=== PATIENT | male | born 1945 | race African-American/Black ===

== ENCOUNTER 2016-11-14 17:10 | Inpatient (IN) | payer OTHER ==
[~2016-11-14] VITALS: Ht 180.3 cm; Wt 89.9 kg
[~2016-11-14 17:10] MED LIST: ADVAIR 250/501 DISK IH; ALDACTAZIDE 251 EACH PO; COMBIVENT INH14.7 GM IH; COMBIVENT RESPIM4 GM IH; DELTASONE20 M1 PO; DILAUDID2 MG PO; GABAPENTIN300 MG PO; GABAPENTIN600 MG PO; GLIMEPIRIDE2 MG PO; K-DUR20 MEQ PO; KLOR-CON M2020 MEQ PO; METFORMIN HCL1000 M1 PO; METFORMIN HCL500 MG PO; NATURAL BALANCE15 M1 BOTH EYES; NEURONTIN600 MG PO; PEPCID20 MG PO; PERCOCET 5/31 TABLET PO; PRAVASTATIN SOD40 MG PO; PROAIR HFA8.5 GM IH; PROCARDIA XL90 MG PO; PROZAC20 MG PO; PROZAC40 MG PO; TRAMADOL HCL50 MG PO; ULTRAM50 MG PO; VENTOLIN HFA18 GM IH; VISINE A.C300 DROP/1 BOTH EYES; XARELTO20 MG PO; ZITHROMAX Z-PA250 MG PO
[2016-11-14 17:39] LABS: HEMATOCRIT 39.8 % (38.0-50.0); MCH 32.6 PG (29.0-34.0); MCHC 33.4 G/DL (30.0-36.0); MCV 97.5 FL (86-99); MEAN PLAT.VOLUME 9.5 uM^3 (9.0-12.4); PLATELET COUNT 352 K/uL (156-360); RBC DIS.WIDTH-CV 12.6 % (11.8-14.6); RBC DIS.WIDTH-SD 43.9 % (39-53); RED BLOOD COUNT 4.08 M/uL (4.00-5.50); WHITE BLOOD COUNT 10.9 K/uL (4.1-10.2)
[2016-11-14 17:47] LABS: CHLORIDE 103 mEq/L (99-109); POTASSIUM 3.9 mEq/L (3.7-5.4); SODIUM 141 mEq/L (136-147)
[2016-11-14 17:49] LABS: GLUCOSE 155 mg/dL (70-99)
[2016-11-14 17:51] LABS: ANION GAP 13 MEQ/L (2-14); TOTAL BILIRUBIN 0.7 mg/dL (0.0-1.0)
[2016-11-14 17:53] LABS: ALKALINE PHOSPHATASE 131 IU/L (3-129); GFR ESTIMATE (CALCULATED) > 59 mL/min/
[2016-11-14 17:54] LABS: UREA NITROGEN (BUN) 12 mg/dL (9-23)
[2016-11-14 17:56] LABS: LIPASE 100 U/L (1.0-51.0)
[2016-11-14 18:29] LABS: D-DIMER ELISA 3.12 mg/L FEU (< 0.57)
[2016-11-14 19:11] LABS: TROP-I INTERPRETATION NEGATIVE; TROPONIN-I 0.01 ng/mL (0.0-0.30)
[2016-11-14] MEDS ORDERED: NEURONTIN300 MG PO (20:17)
[2016-11-14 20:38] LABS: INTER. NORMALIZED RATIO 1.2; PROTHROMBIN TIME 11.8 (9.2-11.2); PTT 32.7 (25-32)
[2016-11-14 22:03] VITALS: BP 122/16
[2016-11-15 03:16] LABS: HEMATOCRIT 37.9 % (38.0-50.0); MCH 32.6 PG (29.0-34.0); MEAN PLAT.VOLUME 9.5 uM^3 (9.0-12.4); PLATELET COUNT 348 K/uL (156-360); RBC DIS.WIDTH-CV 12.7 % (11.8-14.6); RBC DIS.WIDTH-SD 44.3 % (39-53); RED BLOOD COUNT 3.83 M/uL (4.00-5.50); WHITE BLOOD COUNT 10.2 K/uL (4.1-10.2)
[2016-11-15 03:25] LABS: CHLORIDE 104 mEq/L (99-109); POTASSIUM 3.8 mEq/L (3.7-5.4); SODIUM 141 mEq/L (136-147)
[2016-11-15 03:28] LABS: GLUCOSE 101 mg/dL (70-99)
[2016-11-15 03:29] LABS: ANION GAP 12 MEQ/L (2-14)
[2016-11-15 03:30] LABS: TOTAL BILIRUBIN 0.7 mg/dL (0.0-1.0)
[2016-11-15 03:31] LABS: ALKALINE PHOSPHATASE 118 IU/L (3-129); GFR ESTIMATE (CALCULATED) > 59 mL/min/
[2016-11-15 03:32] LABS: UREA NITROGEN (BUN) 12 mg/dL (9-23)
[2016-11-15 03:52] VITALS: BP 112/73
[2016-11-15 07:28] VITALS: BP 101/69
[2016-11-15 10:43] LABS: INTER. NORMALIZED RATIO 1.1; PROTHROMBIN TIME 11.4 (9.2-11.2); PTT 39.1 (25-32)
[2016-11-15 11:03] VITALS: BP 128/79
[2016-11-15 14:59] VITALS: BP 119/73
[2016-11-15 19:17] VITALS: BP 110/74
[2016-11-16 00:02] VITALS: BP 110/60
[2016-11-16 03:43] VITALS: BP 116/78
[2016-11-16 07:28] LABS: INTER. NORMALIZED RATIO 1.1; PROTHROMBIN TIME 11.2 (9.2-11.2)
[2016-11-16 07:29] VITALS: BP 132/88
[2016-11-16 07:39] LABS: PTT 35.9 (25-32)
[2016-11-16 07:49] LABS: POINT-OF-CARE METER ID UU14188625
[2016-11-16 09:08] LABS: HEMATOCRIT 35.2 % (38.0-50.0); MCH 31.4 PG (29.0-34.0); MCHC 31.5 G/DL (30.0-36.0); MCV 99.4 FL (86-99); MEAN PLAT.VOLUME 10.9 uM^3 (9.0-12.4); PLATELET COUNT 316 K/uL (156-360); RBC DIS.WIDTH-CV 12.9 % (11.8-14.6); RBC DIS.WIDTH-SD 46.9 % (39-53); RED BLOOD COUNT 3.54 M/uL (4.00-5.50); WHITE BLOOD COUNT 8.2 K/uL (4.1-10.2)
[2016-11-16 09:28] LABS: ANION GAP 9 MEQ/L (2-14); CHLORIDE 104 MEQ/L (99-109); GFR ESTIMATE (CALCULATED) > 59 mL/min/; GLUCOSE 80 mg/dL (70-99); SAMPLE HEMOLYSIS CHECK 0; SAMPLE ICTERIC CHECK 0; SAMPLE LIPEMIA CHECK 0; SODIUM 138 MEQ/L (136-147); UREA NITROGEN (BUN) 19 mg/dL (9-23)
[2016-11-16 11:04] VITALS: BP 120/82
[2016-11-16 11:08] LABS: POINT-OF-CARE METER ID UU14188625
[2016-11-16 15:19] VITALS: BP 128/69
[2016-11-16 16:17] LABS: POINT-OF-CARE METER ID UU14174225
[2016-11-16 16:51] LABS: INTER. NORMALIZED RATIO 1.1; PROTHROMBIN TIME 11.5 (9.2-11.2); PTT 38.5 (25-32)
[2016-11-16 19:34] VITALS: BP 119/83
[2016-11-16 21:33] LABS: POINT-OF-CARE METER ID UU14188625
[2016-11-17] VITALS: BP 96/62
[2016-11-17 04:00] VITALS: BP 104/70
[2016-11-17 07:49] VITALS: BP 132/81
[2016-11-17 08:34] LABS: HEMATOCRIT 36.5 % (38.0-50.0); MCH 31.1 PG (29.0-34.0); MCHC 31.2 G/DL (30.0-36.0); MCV 99.5 FL (86-99); MEAN PLAT.VOLUME 10.1 uM^3 (9.0-12.4); PLATELET COUNT 315 K/uL (156-360); RBC DIS.WIDTH-CV 12.8 % (11.8-14.6); RBC DIS.WIDTH-SD 46.4 % (39-53); RED BLOOD COUNT 3.67 M/uL (4.00-5.50)
[2016-11-17 09:00] LABS: CREATINE KINASE 110 IU/L (1-294); UREA NITROGEN (BUN) 18 mg/dL (9-23)
[2016-11-17 09:15] LABS: INTER. NORMALIZED RATIO 1.2; PTT 49.3 (25-32)
[2016-11-17 17:00] VITALS: BP 104/74
[2016-11-17 19:40] VITALS: BP 110/72
[2016-11-17 21:58] LABS: LUPA PHOSPHOLIPID NEUTRALIZ Negative (Negative)
[2016-11-17 23:37] VITALS: BP 103/63
[2016-11-18 04:16] VITALS: BP 97/65
[2016-11-18 07:12] LABS: INTER. NORMALIZED RATIO 1.3; PROTHROMBIN TIME 13.5 (9.2-11.2)
[2016-11-18 07:39] VITALS: BP 112/80
[2016-11-18 08:55] LABS: HEMATOCRIT 34.6 % (38.0-50.0); MCH 32.6 PG (29.0-34.0); MCHC 32.1 G/DL (30.0-36.0); MCV 101.5 FL (86-99); MEAN PLAT.VOLUME 11.5 uM^3 (9.0-12.4); PLATELET COUNT 304 K/uL (156-360); RED BLOOD COUNT 3.41 M/uL (4.00-5.50); WHITE BLOOD COUNT 7.6 K/uL (4.1-10.2)
[2016-11-18 11:19] VITALS: BP 110/70
[2016-11-18 15:53] VITALS: BP 114/77
[2016-11-18 19:17] VITALS: BP 104/69
[2016-11-18 21:09] LABS: POINT-OF-CARE METER ID UU14188625
[2016-11-18 23:44] VITALS: BP 111/72
[2016-11-19 04:00] VITALS: BP 106/65
[2016-11-19 07:11] LABS: HEMATOCRIT 34.4 % (38.0-50.0); MCH 32.6 PG (29.0-34.0); MCHC 32.3 G/DL (30.0-36.0); MCV 100.9 FL (86-99); MEAN PLAT.VOLUME 10.3 uM^3 (9.0-12.4); PLATELET COUNT 272 K/uL (156-360); RBC DIS.WIDTH-CV 12.9 % (11.8-14.6); RBC DIS.WIDTH-SD 47.2 % (39-53); RED BLOOD COUNT 3.41 M/uL (4.00-5.50); WHITE BLOOD COUNT 6.6 K/uL (4.1-10.2)
[2016-11-19 07:27] LABS: INTER. NORMALIZED RATIO 1.6; PROTHROMBIN TIME 16.1 (9.2-11.2); PTT 66.5 (25-32)
[2016-11-19 07:27] LABS: POINT-OF-CARE METER ID UU14188625
[2016-11-19 07:43] VITALS: BP 105/69
[2016-11-19 08:02] LABS: ANION GAP 7 MEQ/L (2-14); CHLORIDE 105 MEQ/L (99-109); POTASSIUM 4.4 MEQ/L (3.7-5.4); SAMPLE HEMOLYSIS CHECK 0; SAMPLE ICTERIC CHECK 0; SAMPLE LIPEMIA CHECK 0; SODIUM 139 MEQ/L (136-147)
[2016-11-19 08:08] LABS: GFR ESTIMATE (CALCULATED) > 59 mL/min/; GLUCOSE 60 mg/dL (70-99)
[2016-11-19 08:09] LABS: UREA NITROGEN (BUN) 29 mg/dL (9-23)
[2016-11-19 11:09] LABS: POINT-OF-CARE METER ID UU14188625
[2016-11-19] MEDS ORDERED: COUMADIN1 MG PO (11:37)
[2016-11-19] MEDS ORDERED: LOVENOX80 MG/0.8 SC (11:37)
[2016-11-19] MEDS ORDERED: FAMOTIDINE20 MG PO (11:40)
[2016-11-19 15:03] VITALS: BP 91/63
[2016-11-19 18:32] LABS: DRVVT Mixing Study Interp Not Indicated (()); PROTEIN C FUNCTIONAL ACTIVITY+ >200 % (70-180); PTT-LA >200 sec (<=40); Protein S, Free 118 % normal (57-171); Thrombosis Consult Level Limited (()); dRVVT Screen 52 sec (<=45)
[2016-11-20] VITALS: BP 126/81
[2016-11-20 06:26] LABS: MCH 31.5 PG (29.0-34.0); MCHC 31.1 G/DL (30.0-36.0); MCV 101.4 FL (86-99); MEAN PLAT.VOLUME 10.3 uM^3 (9.0-12.4); PLATELET COUNT 285 K/uL (156-360); RBC DIS.WIDTH-CV 13.1 % (11.8-14.6); RBC DIS.WIDTH-SD 48.4 % (39-53); RED BLOOD COUNT 3.55 M/uL (4.00-5.50); WHITE BLOOD COUNT 6.2 K/uL (4.1-10.2)
[2016-11-20 06:49] LABS: ANION GAP 6 MEQ/L (2-14); CHLORIDE 105 MEQ/L (99-109); GFR ESTIMATE (CALCULATED) > 59 mL/min/; GLUCOSE 72 mg/dL (70-99); POTASSIUM 4.9 MEQ/L (3.7-5.4); SAMPLE HEMOLYSIS CHECK 0; SAMPLE ICTERIC CHECK 0; SAMPLE LIPEMIA CHECK 0; SODIUM 139 MEQ/L (136-147); UREA NITROGEN (BUN) 29 mg/dL (9-23)
[2016-11-20 07:33] VITALS: BP 114/77
[2016-11-20 09:16] LABS: ANTITHROMBIN III ACTIVITY+ 112 % activi (80-120)
[2016-11-20 11:25] LABS: INTER. NORMALIZED RATIO 1.9; PROTHROMBIN TIME 19.4 (9.2-11.2)
[2016-11-20] MEDS ORDERED: LOVENOX80 MG/0.8 SC (11:27)
[2016-11-20] MEDS ORDERED: OXYCODONE HCL15 MG PO (12:49)
== END 2016-11-20 15:53 | disposition home or self-care (01) | DRG 176 ==
LOC: EME 17:10 → EDOF 20:38 → 5SOUTH 20:38
PROVIDERS: Hospitalist; Internal Medicine; Physician Assistant; Student in an Organized Health Care Education/Training Program
DX: I26.99 Other pulmonary embolism without acute cor pulmonale (principal); K91.870 Postprocedural hematoma of a digestive system organ or structure following a digestive system procedure; Y83.8 Other surgical procedures as the cause of abnormal reaction of the patient, or of later complication, without mention of misadventure at the time of the procedure; J44.9 Chronic obstructive pulmonary disease, unspecified; I10 Essential (primary) hypertension; I27.2 Other secondary pulmonary hypertension; G89.29 Other chronic pain; E11.9 Type 2 diabetes mellitus without complications; E78.00 Pure hypercholesterolemia, unspecified; F17.200 Nicotine dependence, unspecified, uncomplicated; F32.9 Major depressive disorder, single episode, unspecified; N28.1 Cyst of kidney, acquired; H54.8 Legal blindness, as defined in USA; G56.03 Carpal tunnel syndrome, bilateral upper limbs; Z90.49 Acquired absence of other specified parts of digestive tract; Z79.891 Long term (current) use of opiate analgesic; Z79.84 Long term (current) use of oral hypoglycemic drugs; Z79.01 Long term (current) use of anticoagulants; Z71.6 Tobacco abuse counseling; Z85.118 Personal history of other malignant neoplasm of bronchus and lung
CPT/HCPCS: 71275; 74177; 76705; 78226; 80048; 80053; 81003; 81240 90; 82550; 82948; 83090 90; 83690; 84484; 84520; 85027; 85240 90; 85300 90; 85303 90; 85305 90; 85306 90; 85307 90; 85379; 85610; 85613 90; 85730; 85730 90; 86146 90; 86147 90; 93005; 93306; 94640; 94640 76; 99202; 99281; 99285; A9537; J1170; J1650; J1815; J1885; J2405; J3010; J7030; J7050

== ENCOUNTER 2016-12-19 17:25 | Emergency (ER) | payer OTHER ==
[~2016-12-19] VITALS: Ht 180.3 cm; Wt 89.4 kg
[~2016-12-19 17:25] MED LIST changes: +COUMADIN1 MG PO; +FAMOTIDINE20 MG PO; +LOVENOX80 MG/0.8 SC; +NEURONTIN300 MG PO; +OXYCODONE HCL15 MG PO
[2016-12-19 18:37] LABS: HEMATOCRIT 41.2 % (38.0-50.0); MCH 32.2 PG (29.0-34.0); MEAN PLAT.VOLUME 9.5 uM^3 (9.0-12.4); PLATELET COUNT 304 K/uL (156-360); RBC DIS.WIDTH-CV 12.4 % (11.8-14.6); RBC DIS.WIDTH-SD 44.2 % (39-53); RED BLOOD COUNT 4.23 M/uL (4.00-5.50); WHITE BLOOD COUNT 7.4 K/uL (4.1-10.2)
[2016-12-19 18:40] LABS: MCV 97.4 FL (86-99)
[2016-12-19 18:49] LABS: CHLORIDE 104 mEq/L (99-109); POTASSIUM 3.7 mEq/L (3.7-5.4); SODIUM 139 mEq/L (136-147)
[2016-12-19 18:51] LABS: GLUCOSE 213 mg/dL (70-99)
[2016-12-19 18:53] LABS: ANION GAP 11 MEQ/L (2-14)
[2016-12-19 18:55] LABS: GFR ESTIMATE (CALCULATED) > 59 mL/min/
[2016-12-19 18:56] LABS: UREA NITROGEN (BUN) 11 mg/dL (9-23)
[2016-12-19 19:02] LABS: TROP-I INTERPRETATION NEGATIVE; TROPONIN-I < 0.01 ng/mL (0.0-0.30)
[2016-12-19] MEDS ORDERED: PERCOCET 10/1 TABLET PO (21:11)
[2016-12-19 21:35] LABS: TROP-I INTERPRETATION NEGATIVE; TROPONIN-I < 0.01 ng/mL (0.0-0.30)
[2016-12-19 21:47] VITALS: BP 98/70
== END 2016-12-19 21:59 | disposition home or self-care (01) ==
LOC: EME 17:25
PROVIDERS: Emergency Medicine
DX: R06.00 Dyspnea, unspecified (principal); R07.9 Chest pain, unspecified; R10.9 Unspecified abdominal pain; R00.0 Tachycardia, unspecified; Z86.711 Personal history of pulmonary embolism; J44.9 Chronic obstructive pulmonary disease, unspecified; I10 Essential (primary) hypertension; E78.5 Hyperlipidemia, unspecified; E11.9 Type 2 diabetes mellitus without complications; Z85.118 Personal history of other malignant neoplasm of bronchus and lung; G89.29 Other chronic pain; Z79.891 Long term (current) use of opiate analgesic; Z87.891 Personal history of nicotine dependence
CPT/HCPCS: 71010; 71275; 80048; 84484; 85027; 93005; 99281; 99285; J3010; J7030

== ENCOUNTER 2017-01-14 18:24 | Observation (INO) | payer OTHER ==
[~2017-01-14] VITALS: Ht 180.3 cm; Wt 88.9 kg
[~2017-01-14 18:24] MED LIST changes: +PERCOCET 10/1 TABLET PO
[2017-01-14 19:21] LABS: MCH 32.7 PG (29.0-34.0); MCHC 33.9 G/DL (30.0-36.0); MCV 96.5 FL (86-99); MEAN PLAT.VOLUME 9.5 uM^3 (9.0-12.4); PLATELET COUNT 337 K/uL (156-360); RBC DIS.WIDTH-CV 12.2 % (11.8-14.6); RBC DIS.WIDTH-SD 42.8 % (39-53); RED BLOOD COUNT 4.25 M/uL (4.00-5.50); WHITE BLOOD COUNT 9.4 K/uL (4.1-10.2)
[2017-01-14 19:33] LABS: CHLORIDE 104 mEq/L (99-109); POTASSIUM 3.6 mEq/L (3.7-5.4); SODIUM 141 mEq/L (136-147)
[2017-01-14 19:35] LABS: GLUCOSE 127 mg/dL (70-99)
[2017-01-14 19:36] LABS: ANION GAP 13 MEQ/L (2-14)
[2017-01-14 19:39] LABS: GFR ESTIMATE (CALCULATED) > 59 mL/min/
[2017-01-14 19:40] LABS: UREA NITROGEN (BUN) 7 mg/dL (9-23)
[2017-01-14 19:42] LABS: TROP-I INTERPRETATION NEGATIVE; TROPONIN-I < 0.01 ng/mL (0.0-0.30)
[2017-01-14 21:12] LABS: INTER. NORMALIZED RATIO 1.3; PROTHROMBIN TIME 13.4 (9.2-11.2); PTT 38.2 (25-32)
[2017-01-14 22:13] LABS: TROP-I INTERPRETATION NEGATIVE; TROPONIN-I < 0.01 ng/mL (0.0-0.30)
[2017-01-14] MEDS ORDERED: XARELTO20 MG PO (22:47)
[2017-01-14 23:43] VITALS: BP 103/72
[2017-01-15 03:10] VITALS: BP 151/83
[2017-01-15 05:50] LABS: ANION GAP 8 MEQ/L (2-14); CHLORIDE 104 MEQ/L (99-109); GFR ESTIMATE (CALCULATED) > 59 mL/min/; POTASSIUM 3.8 MEQ/L (3.7-5.4); SAMPLE HEMOLYSIS CHECK 0; SAMPLE ICTERIC CHECK 0; SAMPLE LIPEMIA CHECK 0; SODIUM 140 MEQ/L (136-147); UREA NITROGEN (BUN) 12 mg/dL (9-23)
[2017-01-15 05:54] LABS: GLUCOSE 247 mg/dL (70-99)
[2017-01-15 08:48] VITALS: BP 110/79
[2017-01-15 10:27] LABS: TROP-I INTERPRETATION NEGATIVE; TROPONIN-I < 0.01 ng/mL (0.0-0.30)
[2017-01-15 10:52] VITALS: BP 115/70
[2017-01-15] MEDS ORDERED: TRAMADOL HCL50 MG PO (12:08)
[2017-01-15 12:53] LABS: ADD MIUA? YES; BILIRUBIN NEGATIVE; BLOOD NEGATIVE; COLOR YELLOW ((YELLOW)); GLUCOSE (STRIP) NEGATIVE; KETONES NEGATIVE; LEUKOCYTES LARGE; NITRITE NEGATIVE; PROTEIN (STRIP) NEGATIVE; SPECIFIC GRAVITY 1.044 (1.000-1.030); UROBILINOGEN 0.2 MG/DL (0.2-1.0)
[2017-01-15 13:13] LABS: BACTERIA RARE /HPF; EPITHELIAL CELLS RARE /HPF; MUCUS TRACE /LPF; RED BLOOD CELLS 40-50 /HPF (0-5); UCUL ADDED? YES; WHITE BLOOD CELLS TNTC /HPF (0-5)
[2017-01-15] MEDS ORDERED: CIPRO500 MG PO (13:30)
[2017-01-15] MEDS ORDERED: BACTRIM,SEPT1 TABLET PO (14:11)
== END 2017-01-15 14:35 | disposition home or self-care (01) ==
LOC: EME 18:24 → 5WEST 22:39 → EDOF 22:39 → 5WEST 23:32
PROVIDERS: Hospitalist; Internal Medicine; Physician Assistant Medical
DX: R07.89 Other chest pain (principal); N39.0 Urinary tract infection, site not specified; R10.11 Right upper quadrant pain; G89.29 Other chronic pain; M54.5 Low back pain; E11.9 Type 2 diabetes mellitus without complications; J44.9 Chronic obstructive pulmonary disease, unspecified; I10 Essential (primary) hypertension; E78.5 Hyperlipidemia, unspecified; Z87.891 Personal history of nicotine dependence; Z85.118 Personal history of other malignant neoplasm of bronchus and lung; Z86.711 Personal history of pulmonary embolism
CPT/HCPCS: 71020; 71275; 74177; 80048; 81003; 84484; 85027; 85610; 85730; 87077; 87086; 87186; 93005; 94640; 99202; 99281; 99285; G0378; J3010; J7030

== ENCOUNTER 2017-03-28 06:32 | Inpatient (IN) | payer OTHER ==
[~2017-03-28] VITALS: Ht 180.3 cm; Wt 96.5 kg
[~2017-03-28 06:32] MED LIST changes: +BACTRIM,SEPT1 TABLET PO; +CIPRO500 MG PO
[2017-03-28 08:11] LABS: HEMATOCRIT 40.8 % (38.0-50.0); MCH 33.7 PG (29.0-34.0); MCHC 33.6 G/DL (30.0-36.0); MCV 100.5 FL (86-99); MEAN PLAT.VOLUME 9.8 uM^3 (9.0-12.4); PLATELET COUNT 302 K/uL (156-360); RBC DIS.WIDTH-CV 11.7 % (11.8-14.6); RED BLOOD COUNT 4.06 M/uL (4.00-5.50); WHITE BLOOD COUNT 8.6 K/uL (4.1-10.2)
[2017-03-28 08:22] LABS: INTER. NORMALIZED RATIO 1.2; PROTHROMBIN TIME 12.1 (9.2-11.2)
[2017-03-28 08:24] LABS: CHLORIDE 102 mEq/L (99-109); POTASSIUM 4.2 mEq/L (3.7-5.4); SODIUM 139 mEq/L (136-147)
[2017-03-28 08:26] LABS: GLUCOSE 180 mg/dL (70-99)
[2017-03-28 08:27] LABS: ANION GAP 13 MEQ/L (2-14)
[2017-03-28 08:28] LABS: TOTAL BILIRUBIN 0.9 mg/dL (0.0-1.0)
[2017-03-28 08:29] LABS: ALKALINE PHOSPHATASE 133 IU/L (3-129)
[2017-03-28 08:30] LABS: GFR ESTIMATE (CALCULATED) > 59 mL/min/
[2017-03-28 08:31] LABS: UREA NITROGEN (BUN) 10 mg/dL (9-23)
[2017-03-28] MEDS ORDERED: ALDACTAZIDE 251 EACH PO (08:32)
[2017-03-28 08:59] LABS: TROP-I INTERPRETATION NEGATIVE; TROPONIN-I < 0.01 ng/mL (0.0-0.30)
[2017-03-28] MEDS ORDERED: NEURONTIN600 MG PO (14:22)
[2017-03-28] MEDS ORDERED: XARELTO20 MG PO (14:22)
[2017-03-28] MEDS ORDERED: ULTRAM50 MG PO (14:23)
[2017-03-28] MEDS ORDERED: VENTOLIN HFA18 GM IH (14:23)
[2017-03-28] MEDS ORDERED: PERCOCET 5/31 TABLET PO (14:23)
[2017-03-28 15:51] VITALS: BP 119/70
[2017-03-28 18:36] VITALS: BP 109/75
[2017-03-29 00:21] LABS: ADD MIUA? YES; BILIRUBIN SMALL; BLOOD NEGATIVE; COLOR AMBER ((YELLOW)); GLUCOSE (STRIP) NEGATIVE; KETONES 5; LEUKOCYTES LARGE; NITRITE NEGATIVE; PROTEIN (STRIP) 30
[2017-03-29 00:27] LABS: BACTERIA 2+ /HPF; EPITHELIAL CELLS RARE /HPF; MUCUS 1+ /LPF; UCUL ADDED? YES; WHITE BLOOD CELLS TNTC /HPF (0-5)
[2017-03-29 05:14] VITALS: BP 114/75
[2017-03-29 08:26] VITALS: BP 109/81
[2017-03-29 08:54] LABS: INTER. NORMALIZED RATIO 1.1; PROTHROMBIN TIME 11.5 (9.2-11.2); PTT 31.7 (25-32)
[2017-03-29 11:46] VITALS: BP 110/79
[2017-03-29 14:38] VITALS: BP 120/85
[2017-03-29 15:54] VITALS: BP 131/66
[2017-03-29 18:51] VITALS: BP 122/79
[2017-03-30 04:25] VITALS: BP 103/78
[2017-03-30 09:11] LABS: POINT-OF-CARE METER ID UU13113675
[2017-03-30 12:30] VITALS: BP 110/86
[2017-03-30 14:10] VITALS: BP 110/86
[2017-03-30 15:47] VITALS: BP 110/71
[2017-03-30 20:52] VITALS: BP 118/70
[2017-03-30 23:47] VITALS: BP 121/81
[2017-03-31 04:40] VITALS: BP 128/76
[2017-03-31 07:20] VITALS: BP 104/61
[2017-03-31 12:39] VITALS: BP 121/81
[2017-03-31 16:03] VITALS: BP 120/69
[2017-03-31 19:50] VITALS: BP 109/74
[2017-04-01 00:07] VITALS: BP 118/74
[2017-04-01 03:52] VITALS: BP 116/81
[2017-04-01 05:37] LABS: POINT-OF-CARE METER ID UU14208750
[2017-04-01 07:53] VITALS: BP 123/84
[2017-04-01 11:46] VITALS: BP 113/74
[2017-04-01 11:47] LABS: POINT-OF-CARE METER ID UU14208750
[2017-04-01 15:53] VITALS: BP 125/70
[2017-04-01 17:40] LABS: POINT-OF-CARE METER ID UU14208750
[2017-04-01 22:55] VITALS: BP 133/72
[2017-04-02 00:21] LABS: POINT-OF-CARE METER ID UU14208750
[2017-04-02 03:56] VITALS: BP 135/68
[2017-04-02 03:58] VITALS: BP 135/64
[2017-04-02 07:55] VITALS: BP 120/72
[2017-04-02 11:17] LABS: ALKALINE PHOSPHATASE 99 IU/L (3-129); ANION GAP 8 MEQ/L (2-14); CHLORIDE 99 MEQ/L (99-109); GFR ESTIMATE (CALCULATED) > 59 mL/min/; GLUCOSE 133 mg/dL (70-99); MAGNESIUM 1.5 mg/dl (1.3-2.7); POTASSIUM 4.3 MEQ/L (3.7-5.4); SAMPLE HEMOLYSIS CHECK 0; SAMPLE ICTERIC CHECK 0; SAMPLE LIPEMIA CHECK 0; SODIUM 138 MEQ/L (136-147); TOTAL BILIRUBIN 0.9 MG/DL (0.0-1.0); TRIGLYCERIDES 161 MG/DL (Normal: <150); UREA NITROGEN (BUN) 11 mg/dL (9-23)
[2017-04-02 12:10] VITALS: BP 107/69
[2017-04-02 16:05] LABS: POINT-OF-CARE METER ID UU13113675
[2017-04-02 18:10] VITALS: BP 152/86
[2017-04-02 23:47] VITALS: BP 120/79
[2017-04-03 03:43] VITALS: BP 116/73
[2017-04-03 07:03] LABS: EOSINOPHIL (%) 0.5 % (0-5); EOSINOPHIL COUNT 0.1 K/uL (0-0.3); HEMATOCRIT 32.6 % (38.0-50.0); IMMATURE GRANULOCYTE (%) 0.6 % (0.0-0.7); IMMATURE GRANULOCYTE COUNT 0.1 K/uL; INSTRUMENT ABS NEUTROPHIL CT 8.5 K/uL; LYMPHOCYTE COUNT 1.5 K/uL (1.0-2.8); MCH 35.3 PG (29.0-34.0); MCV 100.9 FL (86-99); MEAN PLAT.VOLUME 9.7 uM^3 (9.0-12.4); MONOCYTE (%) 9.1 % (3-12); NEUTROPHIL (%) 76.1 % (45-76); NEUTROPHIL COUNT 8.5 K/uL (1.8-6.4); PLATELET COUNT 243 K/uL (156-360); RBC DIS.WIDTH-CV 11.9 % (11.8-14.6); WHITE BLOOD COUNT 11.2 K/uL (4.1-10.2)
[2017-04-03 07:04] LABS: RED BLOOD COUNT 3.23 M/uL (4.00-5.50)
[2017-04-03 07:15] LABS: ALKALINE PHOSPHATASE 97 IU/L (3-129); ANION GAP 7 MEQ/L (2-14); CHLORIDE 104 MEQ/L (99-109); DIRECT BILIRUBIN 0.2 mg/dL (0.0-0.3); GFR ESTIMATE (CALCULATED) > 59 mL/min/; GLUCOSE 141 mg/dL (70-99); MAGNESIUM 1.5 mg/dl (1.3-2.7); POTASSIUM 4.7 MEQ/L (3.7-5.4); SAMPLE HEMOLYSIS CHECK 0; SAMPLE ICTERIC CHECK 0; SAMPLE LIPEMIA CHECK 0; SODIUM 140 MEQ/L (136-147); TOTAL BILIRUBIN 0.6 MG/DL (0.0-1.0); UREA NITROGEN (BUN) 12 mg/dL (9-23)
[2017-04-03 07:25] VITALS: BP 108/68
[2017-04-03 11:03] VITALS: BP 111/80
[2017-04-03 11:07] VITALS: BP 122/71
[2017-04-03 15:31] VITALS: BP 107/65
[2017-04-03 17:52] LABS: POINT-OF-CARE USER ID PUTDRM
[2017-04-03 20:05] VITALS: BP 120/76
[2017-04-04 00:05] VITALS: BP 123/79
[2017-04-04 04:06] VITALS: BP 122/78
[2017-04-04 05:39] LABS: POINT-OF-CARE METER ID UU14208750
[2017-04-04 06:03] LABS: HEMATOCRIT 31.6 % (38.0-50.0); MCH 34.6 PG (29.0-34.0); MCHC 34.2 G/DL (30.0-36.0); MCV 101.3 FL (86-99); MEAN PLAT.VOLUME 9.9 uM^3 (9.0-12.4); PLATELET COUNT 223 K/uL (156-360); RBC DIS.WIDTH-CV 11.9 % (11.8-14.6); RBC DIS.WIDTH-SD 43.9 % (39-53); RED BLOOD COUNT 3.12 M/uL (4.00-5.50); WHITE BLOOD COUNT 8.6 K/uL (4.1-10.2)
[2017-04-04 06:33] LABS: ANION GAP 6 MEQ/L (2-14); CHLORIDE 106 MEQ/L (99-109); GFR ESTIMATE (CALCULATED) > 59 mL/min/; GLUCOSE 159 mg/dL (70-99); MAGNESIUM 1.7 mg/dl (1.3-2.7); POTASSIUM 4.1 MEQ/L (3.7-5.4); SAMPLE HEMOLYSIS CHECK 0; SAMPLE ICTERIC CHECK 0; SAMPLE LIPEMIA CHECK 0; SODIUM 140 MEQ/L (136-147); UREA NITROGEN (BUN) 15 mg/dL (9-23)
[2017-04-04 07:35] VITALS: BP 119/79
[2017-04-04 15:45] VITALS: BP 124/79
[2017-04-04 23:54] VITALS: BP 119/72
[2017-04-05 06:40] LABS: ANION GAP 8 MEQ/L (2-14); CHLORIDE 105 MEQ/L (99-109); GFR ESTIMATE (CALCULATED) > 59 mL/min/; GLUCOSE 180 mg/dL (70-99); MAGNESIUM 1.9 mg/dl (1.3-2.7); SAMPLE HEMOLYSIS CHECK 0; SAMPLE ICTERIC CHECK 0; SAMPLE LIPEMIA CHECK 0; SODIUM 139 MEQ/L (136-147); UREA NITROGEN (BUN) 18 mg/dL (9-23)
[2017-04-05 07:05] VITALS: BP 134/82
[2017-04-05 11:50] VITALS: BP 139/63
[2017-04-05 12:08] LABS: POINT-OF-CARE METER ID UU14208750; POINT-OF-CARE USER ID PUTDRM
[2017-04-05 15:34] VITALS: BP 130/81
[2017-04-05 19:10] VITALS: BP 111/61
[2017-04-05 23:42] LABS: POINT-OF-CARE METER ID UU14208750
[2017-04-06] VITALS (7 sets, daily range): BP systolic 111–132; BP diastolic 70–77
[2017-04-06 07:02] LABS: EOSINOPHIL (%) 7.9 % (0-5); EOSINOPHIL COUNT 0.6 K/uL (0-0.3); HEMATOCRIT 30.1 % (38.0-50.0); IMMATURE GRANULOCYTE (%) 1.8 % (0.0-0.7); IMMATURE GRANULOCYTE COUNT 0.1 K/uL; INSTRUMENT ABS NEUTROPHIL CT 4.4 K/uL; LYMPHOCYTE COUNT 1.8 K/uL (1.0-2.8); MCH 34.9 PG (29.0-34.0); MCHC 33.9 G/DL (30.0-36.0); MCV 103.1 FL (86-99); MEAN PLAT.VOLUME 10.8 uM^3 (9.0-12.4); MONOCYTE (%) 10.7 % (3-12); MONOCYTE COUNT 0.8 K/uL (0-0.8); NEUTROPHIL (%) 56.6 % (45-76); NEUTROPHIL COUNT 4.4 K/uL (1.8-6.4); PLATELET COUNT 207 K/uL (156-360); RBC DIS.WIDTH-CV 11.9 % (11.8-14.6); RBC DIS.WIDTH-SD 45.1 % (39-53); RED BLOOD COUNT 2.92 M/uL (4.00-5.50); WHITE BLOOD COUNT 7.8 K/uL (4.1-10.2)
[2017-04-06 07:20] LABS: ALKALINE PHOSPHATASE 95 IU/L (3-129); ANION GAP 9 MEQ/L (2-14); CHLORIDE 107 MEQ/L (99-109); DIRECT BILIRUBIN 0.2 mg/dL (0.0-0.3); GFR ESTIMATE (CALCULATED) > 59 mL/min/; GLUCOSE 203 mg/dL (70-99); MAGNESIUM 1.8 mg/dl (1.3-2.7); POTASSIUM 4.3 MEQ/L (3.7-5.4); PREALBUMIN 13.5 mg/dL (10-40); SAMPLE HEMOLYSIS CHECK 0; SAMPLE ICTERIC CHECK 0; SAMPLE LIPEMIA CHECK 0; SODIUM 141 MEQ/L (136-147); TOTAL BILIRUBIN 0.6 MG/DL (0.0-1.0); TRIGLYCERIDES 180 MG/DL (Normal: <150); UREA NITROGEN (BUN) 17 mg/dL (9-23)
[2017-04-06 17:20] LABS: POINT-OF-CARE METER ID UU14208750
[2017-04-07 00:26] LABS: POINT-OF-CARE METER ID UU14208750
[2017-04-07 03:32] VITALS: BP 112/74
[2017-04-07 05:43] LABS: POINT-OF-CARE METER ID UU14208750
[2017-04-07 07:50] LABS: ANION GAP 9 MEQ/L (2-14); CHLORIDE 104 MEQ/L (99-109); GFR ESTIMATE (CALCULATED) > 59 mL/min/; GLUCOSE 178 mg/dL (70-99); MAGNESIUM 1.8 mg/dl (1.3-2.7); POTASSIUM 4.1 MEQ/L (3.7-5.4); SAMPLE HEMOLYSIS CHECK 0; SAMPLE ICTERIC CHECK 0; SAMPLE LIPEMIA CHECK 0; SODIUM 137 MEQ/L (136-147); UREA NITROGEN (BUN) 18 mg/dL (9-23)
[2017-04-07 08:10] VITALS: BP 100/75
[2017-04-07 11:24] LABS: URINE UREA NITROGEN 10232 MG/24 HR
[2017-04-07 12:36] LABS: POINT-OF-CARE METER ID UU14208750
[2017-04-07 15:54] VITALS: BP 124/77
[2017-04-07 18:14] LABS: POINT-OF-CARE METER ID UU14208750
[2017-04-08 00:03] LABS: POINT-OF-CARE METER ID UU14208750
[2017-04-08 00:24] VITALS: BP 111/73
[2017-04-08 05:42] LABS: POINT-OF-CARE METER ID UU14208750
[2017-04-08 07:15] VITALS: BP 110/79
[2017-04-08 07:46] LABS: ANION GAP 9 MEQ/L (2-14); CHLORIDE 104 MEQ/L (99-109); GFR ESTIMATE (CALCULATED) > 59 mL/min/; GLUCOSE 153 mg/dL (70-99); MAGNESIUM 1.7 mg/dl (1.3-2.7); POTASSIUM 4.5 MEQ/L (3.7-5.4); SAMPLE HEMOLYSIS CHECK 0; SAMPLE ICTERIC CHECK 0; SAMPLE LIPEMIA CHECK 0; SODIUM 139 MEQ/L (136-147); UREA NITROGEN (BUN) 21 mg/dL (9-23)
[2017-04-08] MEDS ORDERED: ENDOCET 5-3251 EACH PO (09:18)
[2017-04-08] MEDS ORDERED: COLACE100 MG PO (09:18)
[2017-04-08] MEDS ORDERED: MIRALAX17 GM PO (09:18)
== END 2017-04-08 12:09 | disposition home or self-care (01) | DRG 336 ==
LOC: EME 06:32 → 2EAST 08:22 → EDOF 08:22 → 2EAST 14:56
PROVIDERS: Emergency Medicine; Physician Assistant; Physician Assistant Surgical; Surgery
DX: K56.5 Intestinal adhesions [bands] with obstruction (postinfection) (principal); K43.2 Incisional hernia without obstruction or gangrene; K40.90 Unilateral inguinal hernia, without obstruction or gangrene, not specified as recurrent; J44.9 Chronic obstructive pulmonary disease, unspecified; Z86.718 Personal history of other venous thrombosis and embolism; Z86.711 Personal history of pulmonary embolism; I12.9 Hypertensive chronic kidney disease with stage 1 through stage 4 chronic kidney disease, or unspecified chronic kidney disease; N18.9 Chronic kidney disease, unspecified; Z85.118 Personal history of other malignant neoplasm of bronchus and lung; M19.90 Unspecified osteoarthritis, unspecified site; M79.7 Fibromyalgia; H54.8 Legal blindness, as defined in USA; E78.5 Hyperlipidemia, unspecified; R73.03 Prediabetes; Z87.891 Personal history of nicotine dependence; E66.9 Obesity, unspecified; Z68.28 Body mass index [BMI] 28.0-28.9, adult; E78.00 Pure hypercholesterolemia, unspecified; Z68.29 Body mass index [BMI] 29.0-29.9, adult; E44.1 Mild protein-calorie malnutrition
CPT/HCPCS: 71010; 71020; 74020; 74176; 80048; 80053; 80076; 81003; 81050; 82248; 82948; 83735; 84100; 84134; 84478; 84484; 84540; 84630 90; 85025; 85027; 85610; 85730; 87077; 87086; 87186; 93005; 94640; 94760; 94799; 99202; 99281; 99285; C1781; J0131; J0330; J0744; J1100; J1170; J1335; J1644; J1815; J1885; J2250; J2405; J2710; J2765; J3010; J3475; J3480; J7050; J7120; S0028

== ENCOUNTER 2017-04-13 04:21 | Inpatient (IN) | payer OTHER ==
[~2017-04-13] VITALS: Ht 180.3 cm; Wt 90.3 kg
[~2017-04-13 04:21] MED LIST changes: +COLACE100 MG PO; +ENDOCET 5-3251 EACH PO; +MIRALAX17 GM PO
[2017-04-13 05:11] LABS: EOSINOPHIL (%) 3.7 % (0-5); EOSINOPHIL COUNT 0.4 K/uL (0-0.3); HEMATOCRIT 31.6 % (38.0-50.0); IMMATURE GRANULOCYTE (%) 0.5 % (0.0-0.7); IMMATURE GRANULOCYTE COUNT 0.1 K/uL; LYMPHOCYTE COUNT 2.1 K/uL (1.0-2.8); MCH 33.1 PG (29.0-34.0); MCHC 32.9 G/DL (30.0-36.0); MCV 100.6 FL (86-99); MEAN PLAT.VOLUME 10.1 uM^3 (9.0-12.4); MONOCYTE (%) 8.3 % (3-12); MONOCYTE COUNT 0.9 K/uL (0-0.8); NEUTROPHIL (%) 67.1 % (45-76); RBC DIS.WIDTH-CV 11.6 % (11.8-14.6); RBC DIS.WIDTH-SD 42.2 % (39-53); RED BLOOD COUNT 3.14 M/uL (4.00-5.50); WHITE BLOOD COUNT 10.4 K/uL (4.1-10.2)
[2017-04-13 05:12] LABS: PLATELET COUNT 335 K/uL (156-360)
[2017-04-13 05:25] LABS: TROP-I INTERPRETATION NEGATIVE; TROPONIN-I < 0.01 ng/mL (0.0-0.30)
[2017-04-13 05:42] LABS: ANION GAP 17 MEQ/L (2-14); CHLORIDE 102 MEQ/L (99-109); GFR ESTIMATE (CALCULATED) > 59 mL/min/; GLUCOSE 143 mg/dL (70-99); SAMPLE HEMOLYSIS CHECK 0; SAMPLE ICTERIC CHECK 0; SAMPLE LIPEMIA CHECK 0; SODIUM 141 MEQ/L (136-147); UREA NITROGEN (BUN) 9 mg/dL (9-23)
[2017-04-13 05:44] LABS: ALKALINE PHOSPHATASE 465 IU/L (3-129); TOTAL BILIRUBIN 2.6 MG/DL (0.0-1.0)
[2017-04-13] MEDS ORDERED: COLACE100 MG PO (08:35)
[2017-04-13] MEDS ORDERED: NEURONTIN300 MG PO (08:36)
[2017-04-13 11:11] LABS: POINT-OF-CARE METER ID UU13113702
[2017-04-13 11:31] LABS: TROP-I INTERPRETATION NEGATIVE; TROPONIN-I < 0.01 ng/mL (0.0-0.30)
[2017-04-13 15:11] LABS: POINT-OF-CARE METER ID UU13113702
[2017-04-13 16:50] VITALS: BP 113/70
[2017-04-13 18:17] LABS: POINT-OF-CARE METER ID UU14208750
[2017-04-13 18:30] LABS: TROP-I INTERPRETATION NEGATIVE; TROPONIN-I 0.01 ng/mL (0.0-0.30)
[2017-04-13 20:56] VITALS: BP 105/59
[2017-04-13 21:25] LABS: POINT-OF-CARE METER ID UU14208750
[2017-04-13 23:55] VITALS: BP 121/64
[2017-04-14 03:01] LABS: POINT-OF-CARE METER ID UU14208750
[2017-04-14 04:02] VITALS: BP 100/55
[2017-04-14 05:59] LABS: POINT-OF-CARE METER ID UU14208750
[2017-04-14 07:10] LABS: HEMATOCRIT 33.2 % (38.0-50.0); MCHC 32.5 G/DL (30.0-36.0); MCV 101.5 FL (86-99); MEAN PLAT.VOLUME 10.5 uM^3 (9.0-12.4); PLATELET COUNT 367 K/uL (156-360); RBC DIS.WIDTH-CV 11.8 % (11.8-14.6); RBC DIS.WIDTH-SD 43.8 % (39-53); RED BLOOD COUNT 3.27 M/uL (4.00-5.50); WHITE BLOOD COUNT 6.2 K/uL (4.1-10.2)
[2017-04-14 07:31] LABS: ALKALINE PHOSPHATASE 525 IU/L (3-129); ANION GAP 10 MEQ/L (2-14); C-REACTIVE PROTEIN 52.5 MG/L (0-10); CHLORIDE 103 MEQ/L (99-109); GFR ESTIMATE (CALCULATED) > 59 mL/min/; SAMPLE HEMOLYSIS CHECK 0; SAMPLE ICTERIC CHECK 0; SAMPLE LIPEMIA CHECK 0; SODIUM 142 MEQ/L (136-147); UREA NITROGEN (BUN) 7 mg/dL (9-23)
[2017-04-14 07:34] LABS: GLUCOSE 96 mg/dL (70-99); POTASSIUM 3.8 MEQ/L (3.7-5.4)
[2017-04-14 07:52] VITALS: BP 93/67
[2017-04-14 09:48] LABS: POINT-OF-CARE METER ID UU14208750
[2017-04-14 11:13] LABS: LIPASE 120 U/L (1.0-51.0)
[2017-04-14 11:58] VITALS: BP 111/69
[2017-04-14 13:13] LABS: POINT-OF-CARE METER ID UU14208750
[2017-04-14 18:39] LABS: POINT-OF-CARE METER ID UU14208750
[2017-04-14 20:01] VITALS: BP 117/75
[2017-04-14 23:20] LABS: POINT-OF-CARE METER ID UU14208750
[2017-04-15 00:13] VITALS: BP 92/53
[2017-04-15 03:09] VITALS: BP 105/64
[2017-04-15 07:01] LABS: EOSINOPHIL (%) 0.1 % (0-5); HEMATOCRIT 31.5 % (38.0-50.0); IMMATURE GRANULOCYTE (%) 0.6 % (0.0-0.7); IMMATURE GRANULOCYTE COUNT 0.1 K/uL; INSTRUMENT ABS NEUTROPHIL CT 6.5 K/uL; LYMPHOCYTE COUNT 1.3 K/uL (1.0-2.8); MCH 32.9 PG (29.0-34.0); MCHC 32.1 G/DL (30.0-36.0); MCV 102.6 FL (86-99); MEAN PLAT.VOLUME 10.5 uM^3 (9.0-12.4); MONOCYTE (%) 4.1 % (3-12); MONOCYTE COUNT 0.3 K/uL (0-0.8); NEUTROPHIL (%) 79.6 % (45-76); NEUTROPHIL COUNT 6.5 K/uL (1.8-6.4); PLATELET COUNT 413 K/uL (156-360); RBC DIS.WIDTH-CV 11.5 % (11.8-14.6); RBC DIS.WIDTH-SD 43.3 % (39-53); RED BLOOD COUNT 3.07 M/uL (4.00-5.50); WHITE BLOOD COUNT 8.2 K/uL (4.1-10.2)
[2017-04-15 07:20] VITALS: BP 113/62
[2017-04-15 07:26] LABS: ALKALINE PHOSPHATASE 485 IU/L (3-129); ANION GAP 9 MEQ/L (2-14); CHLORIDE 102 MEQ/L (99-109); GFR ESTIMATE (CALCULATED) > 59 mL/min/; GLUCOSE 105 mg/dL (70-99); LIPASE 37 U/L (1.0-51.0); SAMPLE HEMOLYSIS CHECK 0; SAMPLE ICTERIC CHECK 0; SAMPLE LIPEMIA CHECK 0; SODIUM 139 MEQ/L (136-147); UREA NITROGEN (BUN) 12 mg/dL (9-23)
[2017-04-15 07:30] LABS: TOTAL BILIRUBIN 1.1 MG/DL (0.0-1.0)
[2017-04-15 07:38] LABS: GFR ESTIMATE (CALCULATED) > 59 mL/min/; MAGNESIUM 1.4 mg/dl (1.3-2.7); UREA NITROGEN (BUN) 12 mg/dL (9-23)
[2017-04-15 10:37] LABS: POINT-OF-CARE METER ID UU14208750
[2017-04-15 12:40] LABS: Estimated Average Glucose 126 mg/dL (70-123)
[2017-04-15 15:35] VITALS: BP 98/64
[2017-04-15 16:52] LABS: POINT-OF-CARE METER ID UU14208750
[2017-04-15 20:23] VITALS: BP 113/77
[2017-04-15 23:49] VITALS: BP 100/58
[2017-04-16 06:22] LABS: EOSINOPHIL (%) 3.7 % (0-5); EOSINOPHIL COUNT 0.2 K/uL (0-0.3); HEMATOCRIT 29.2 % (38.0-50.0); IMMATURE GRANULOCYTE (%) 0.3 % (0.0-0.7); INSTRUMENT ABS NEUTROPHIL CT 3.7 K/uL; MCH 33.5 PG (29.0-34.0); MCHC 32.5 G/DL (30.0-36.0); MCV 102.8 FL (86-99); MEAN PLAT.VOLUME 10.3 uM^3 (9.0-12.4); MONOCYTE (%) 5.9 % (3-12); MONOCYTE COUNT 0.4 K/uL (0-0.8); NEUTROPHIL (%) 58.4 % (45-76); NEUTROPHIL COUNT 3.7 K/uL (1.8-6.4); PLATELET COUNT 380 K/uL (156-360); RBC DIS.WIDTH-CV 11.7 % (11.8-14.6); RBC DIS.WIDTH-SD 43.9 % (39-53); RED BLOOD COUNT 2.84 M/uL (4.00-5.50); WHITE BLOOD COUNT 6.3 K/uL (4.1-10.2)
[2017-04-16 06:56] LABS: ANION GAP 9 MEQ/L (2-14); CHLORIDE 105 MEQ/L (99-109); GFR ESTIMATE (CALCULATED) > 59 mL/min/; GLUCOSE 114 mg/dL (70-99); POTASSIUM 3.9 MEQ/L (3.7-5.4); SAMPLE HEMOLYSIS CHECK 0; SAMPLE ICTERIC CHECK 0; SAMPLE LIPEMIA CHECK 0; SODIUM 142 MEQ/L (136-147); UREA NITROGEN (BUN) 17 mg/dL (9-23)
[2017-04-16 06:57] LABS: ALKALINE PHOSPHATASE 361 IU/L (3-129); TOTAL BILIRUBIN 0.7 MG/DL (0.0-1.0)
[2017-04-16 07:40] VITALS: BP 96/57
[2017-04-16 08:00] VITALS: BP 118/78
[2017-04-16] MEDS ORDERED: ENDOCET 5-3251 EACH PO (09:31)
[2017-04-16] MEDS ORDERED: CIPRO500 MG PO (09:42)
== END 2017-04-16 10:33 | disposition home or self-care (01) | DRG 445 ==
LOC: EME 04:21 → EDOF 07:35 → 2EAST 07:35 → EDOF 07:40 → 2EAST 16:29
PROVIDERS: Emergency Medicine; Hospitalist; Internal Medicine
DX: K83.0 Cholangitis (principal); F33.9 Major depressive disorder, recurrent, unspecified; J44.9 Chronic obstructive pulmonary disease, unspecified; M54.5 Low back pain; K83.8 Other specified diseases of biliary tract; E78.5 Hyperlipidemia, unspecified; G89.29 Other chronic pain; I10 Essential (primary) hypertension; E11.65 Type 2 diabetes mellitus with hyperglycemia; D64.9 Anemia, unspecified; E87.6 Hypokalemia; K29.70 Gastritis, unspecified, without bleeding; Z88.5 Allergy status to narcotic agent; Z79.01 Long term (current) use of anticoagulants; Z79.84 Long term (current) use of oral hypoglycemic drugs; Z85.118 Personal history of other malignant neoplasm of bronchus and lung; Z86.711 Personal history of pulmonary embolism; Z86.718 Personal history of other venous thrombosis and embolism; Z87.891 Personal history of nicotine dependence; Z88.0 Allergy status to penicillin; Z90.49 Acquired absence of other specified parts of digestive tract; Z82.49 Family history of ischemic heart disease and other diseases of the circulatory system
CPT/HCPCS: 71010; 74177; 74183; 74330; 76000; 80053; 82565; 82948; 83036; 83605; 83690; 83735; 84484; 84520; 85025; 85027; 86140; 87040; 87081; 93005; 94640; 94640 76; 99202; 99281; 99285; C1757; C1769; C9113; J0330; J1100; J1815; J1956; J2185; J2405; J3010; J3475; J3480; J7030; J7050; S0028

== ENCOUNTER 2017-12-05 19:32 | Inpatient (IN) | payer OTHER ==
[~2017-12-05] VITALS: Ht 180.3 cm; Wt 91.6 kg
[2017-12-05 20:20] LABS: HEMATOCRIT 36.3 % (38.0-50.0); HEMOGLOBIN 12.7 G/DL (12.5-16.6); MCH 37.5 PG (29.0-34.0); MCV 107.1 FL (86-99); PLATELET COUNT 298 K/uL (156-360); RBC DIS.WIDTH-CV 12.1 % (11.8-14.6); RBC DIS.WIDTH-SD 47.8 % (39-53); RED BLOOD COUNT 3.39 M/uL (4.00-5.50); WHITE BLOOD COUNT 8.2 K/uL (4.1-10.2)
[2017-12-05 20:31] LABS: ALBUMIN 4.2 g/dL (3.2-4.8); CHLORIDE 105 mEq/L (99-109); POTASSIUM 3.6 mEq/L (3.7-5.4); SODIUM 139 mEq/L (136-147)
[2017-12-05 20:34] LABS: GLUCOSE 250 mg/dL (70-99); TOTAL PROTEIN 7.1 g/dL (6.4-8.3)
[2017-12-05 20:35] LABS: TOTAL BILIRUBIN 0.7 mg/dL (0.0-1.0)
[2017-12-05 20:37] LABS: ALKALINE PHOSPHATASE 123 IU/L (3-129); CREATININE 1.4 mg/dL (0.6-1.3); GFR ESTIMATE (CALCULATED) > 59 mL/min/ (58.99-99999)
[2017-12-05 20:38] LABS: UREA NITROGEN (BUN) 14 mg/dL (9-23)
[2017-12-05 20:39] LABS: AST (GOT) 14 IU/L (2-34); DIRECT BILIRUBIN 0.3 mg/dL (0.0-0.3)
[2017-12-05 20:40] LABS: ALT (GPT) 12 IU/L (3-49)
[2017-12-05 20:41] LABS: LIPASE 34 U/L (1.0-51.0)
[2017-12-05 20:44] LABS: TROP-I INTERPRETATION NEGATIVE; TROPONIN-I < 0.01 ng/mL (0.0-0.30)
[2017-12-05] MEDS ORDERED: PERCOCET 7.51 TABLET PO (22:05)
[2017-12-05] MEDS ORDERED: PRAVACHOL40 MG PO (22:06)
[2017-12-05] MEDS ORDERED: ALDACTAZIDE 251 EACH PO (22:06)
[2017-12-05] MEDS ORDERED: AMARYL2 MG PO (22:06)
[2017-12-05] MEDS ORDERED: COMBIVENT RESPIM4 GM IH (22:06)
[2017-12-05] MEDS ORDERED: METFORMIN HCL1000 MG PO (22:06)
[2017-12-06 01:15] VITALS: BP 107/66
[2017-12-06 04:00] VITALS: BP 107/66
[2017-12-06 06:48] LABS: TROP-I INTERPRETATION NEGATIVE; TROPONIN-I 0.02 ng/mL (0.0-0.30)
[2017-12-06 06:55] VITALS: BP 117/78
[2017-12-06 11:01] VITALS: BP 118/65
[2017-12-06 12:22] LABS: TROP-I INTERPRETATION NEGATIVE; TROPONIN-I < 0.01 ng/mL (0.0-0.30)
[2017-12-06 14:56] VITALS: BP 125/74
[2017-12-06 19:27] VITALS: BP 111/68
[2017-12-07] VITALS (7 sets, daily range): BP systolic 98–134; BP diastolic 63–70
[2017-12-07 06:30] LABS: HEMATOCRIT 30.5 % (38.0-50.0); MCH 37.4 PG (29.0-34.0); MCHC 34.4 G/DL (30.0-36.0); MCV 108.5 FL (86-99); PLATELET COUNT 242 K/uL (156-360); RBC DIS.WIDTH-CV 11.9 % (11.8-14.6); RED BLOOD COUNT 2.81 M/uL (4.00-5.50); WHITE BLOOD COUNT 13.4 K/uL (4.1-10.2)
[2017-12-07 06:49] LABS: HEMOGLOBIN 10.5 G/DL (12.5-16.6)
[2017-12-07 07:00] LABS: ALBUMIN 3.8 G/DL (3.2-4.8); ALKALINE PHOSPHATASE 102 IU/L (3-129); ALT (GPT) 9 IU/L (3-49); AST (GOT) 7 IU/L (2-34); CHLORIDE 102 MEQ/L (99-109); CREATININE 1.2 MG/DL (0.6-1.3); GFR ESTIMATE (CALCULATED) > 59 mL/min/ (58.99-99999); GLUCOSE 324 mg/dL (70-99); POTASSIUM 4.6 MEQ/L (3.7-5.4); SODIUM 134 MEQ/L (136-147); TOTAL BILIRUBIN 0.4 MG/DL (0.0-1.0); TOTAL PROTEIN 5.6 G/DL (6.4-8.3); UREA NITROGEN (BUN) 23 mg/dL (9-23)
[2017-12-08 03:12] VITALS: BP 105/67
[2017-12-08 07:52] VITALS: BP 122/75
[2017-12-08 08:53] LABS: HEMOGLOBIN 11.7 G/DL (12.5-16.6); MCH 36.3 PG (29.0-34.0); MCHC 33.4 G/DL (30.0-36.0); MCV 108.7 FL (86-99); RBC DIS.WIDTH-CV 12.2 % (11.8-14.6); RBC DIS.WIDTH-SD 49.2 % (39-53); RED BLOOD COUNT 3.22 M/uL (4.00-5.50); WHITE BLOOD COUNT 12.2 K/uL (4.1-10.2)
[2017-12-08 09:18] LABS: CHLORIDE 102 MEQ/L (99-109); CREATININE 1.1 MG/DL (0.6-1.3); GFR ESTIMATE (CALCULATED) > 59 mL/min/ (58.99-99999); GLUCOSE 227 mg/dL (70-99); POTASSIUM 4.2 MEQ/L (3.7-5.4); SODIUM 137 MEQ/L (136-147); UREA NITROGEN (BUN) 25 mg/dL (9-23)
[2017-12-08 09:20] LABS: PLATELET COUNT 324 K/uL (156-360)
[2017-12-08 09:57] LABS: ALBUMIN 4.3 G/DL (3.2-4.8); ALKALINE PHOSPHATASE 106 IU/L (3-129); ALT (GPT) 9 IU/L (3-49); AST (GOT) 8 IU/L (2-34); DIRECT BILIRUBIN 0.1 mg/dL (0.0-0.3); TOTAL BILIRUBIN 0.4 MG/DL (0.0-1.0); TOTAL PROTEIN 6.4 G/DL (6.4-8.3)
[2017-12-08 11:47] VITALS: BP 132/67
[2017-12-08 20:14] VITALS: BP 99/57
[2017-12-09 03:29] VITALS: BP 98/53
[2017-12-09 07:50] VITALS: BP 106/56
[2017-12-09 08:57] LABS: HEMATOCRIT 32.7 % (38.0-50.0); MCH 36.9 PG (29.0-34.0); MCHC 33.6 G/DL (30.0-36.0); MCV 109.7 FL (86-99); NRBC (%) 0.2 /100 WBC (0-0); PLATELET COUNT 282 K/uL (156-360); RBC DIS.WIDTH-CV 12.3 % (11.8-14.6); RBC DIS.WIDTH-SD 49.9 % (39-53); RED BLOOD COUNT 2.98 M/uL (4.00-5.50); WHITE BLOOD COUNT 10.9 K/uL (4.1-10.2)
[2017-12-10 00:21] VITALS: BP 116/74
[2017-12-10 06:34] VITALS: BP 122/77
[2017-12-10] MEDS ORDERED: TRAMADOL HCL50 MG PO (12:30)
[2017-12-10 15:20] VITALS: BP 112/67
[2017-12-10 23:40] VITALS: BP 120/78
[2017-12-11 08:45] VITALS: BP 114/74
== END 2017-12-11 09:00 | disposition home or self-care (01) | DRG 191 ==
LOC: EME 19:32 → 5SOUTH 23:08 → EDOF 23:08 → ENRESERV 23:09 → EDOF 12-06 01:16 → 5SOUTH 12-06 01:20
PROVIDERS: Emergency Medicine; Hospitalist; Physician Assistant Medical
DX: J44.1 Chronic obstructive pulmonary disease with (acute) exacerbation (principal); E87.2 Acidosis; E11.9 Type 2 diabetes mellitus without complications; I10 Essential (primary) hypertension; I27.82 Chronic pulmonary embolism; E86.0 Dehydration; I27.20 Pulmonary hypertension, unspecified; E78.5 Hyperlipidemia, unspecified; G89.29 Other chronic pain; H54.8 Legal blindness, as defined in USA; Z85.118 Personal history of other malignant neoplasm of bronchus and lung; R65.10 Systemic inflammatory response syndrome (SIRS) of non-infectious origin without acute organ dysfunction
CPT/HCPCS: 71045; 71275; 74177; 80048; 80053; 80076; 82948; 83605; 83690; 83880; 84484; 85027; 87040; 93005; 94640; 94640 76; 94760; 99202; 99281; 99285; C9113; J1170; J1815; J1885; J2930; J3010; J7030; J7050; J7512

== ENCOUNTER 2018-02-11 15:28 | Emergency (ER) | payer OTHER ==
[~2018-02-11] VITALS: Ht 180.3 cm; Wt 89.1 kg
[~2018-02-11 15:28] MED LIST changes: +AMARYL2 MG PO; +METFORMIN HCL1000 MG PO; +PERCOCET 7.51 TABLET PO; +PRAVACHOL40 MG PO
[2018-02-11 15:55] LABS: HEMATOCRIT 40.4 % (38.0-50.0); MCH 35.7 PG (29.0-34.0); MCHC 34.7 G/DL (30.0-36.0); MCV 103.1 FL (86-99); PLATELET COUNT 316 K/uL (156-360); RBC DIS.WIDTH-CV 12.3 % (11.8-14.6); RED BLOOD COUNT 3.92 M/uL (4.00-5.50); WHITE BLOOD COUNT 9.9 K/uL (4.1-10.2)
[2018-02-11 16:04] LABS: ALBUMIN 4.2 g/dL (3.2-4.8)
[2018-02-11 16:05] LABS: CHLORIDE 104 mEq/L (99-109); POTASSIUM 4.2 mEq/L (3.7-5.4); SODIUM 142 mEq/L (136-147)
[2018-02-11 16:07] LABS: GLUCOSE 140 mg/dL (70-99)
[2018-02-11 16:09] LABS: TOTAL BILIRUBIN 0.6 mg/dL (0.0-1.0)
[2018-02-11 16:10] LABS: ALKALINE PHOSPHATASE 111 IU/L (3-129); CREATININE 1.3 mg/dL (0.6-1.3); GFR ESTIMATE (CALCULATED) > 59 mL/min/ (58.99-99999)
[2018-02-11 16:12] LABS: AST (GOT) 12 IU/L (2-34); UREA NITROGEN (BUN) 13 mg/dL (9-23)
[2018-02-11 16:13] LABS: ALT (GPT) 12 IU/L (3-49)
[2018-02-11 16:58] LABS: ALBUMIN 3.9 g/dL (3.2-4.8); CHLORIDE 105 mEq/L (99-109); POTASSIUM 3.8 mEq/L (3.7-5.4); SODIUM 142 mEq/L (136-147)
[2018-02-11 17:00] LABS: GLUCOSE 134 mg/dL (70-99); TOTAL PROTEIN 6.5 g/dL (6.4-8.3)
[2018-02-11 17:02] LABS: TOTAL BILIRUBIN 0.6 mg/dL (0.0-1.0)
[2018-02-11 17:04] LABS: ALKALINE PHOSPHATASE 102 IU/L (3-129); CREATININE 1.1 mg/dL (0.6-1.3); GFR ESTIMATE (CALCULATED) > 59 mL/min/ (58.99-99999)
[2018-02-11 17:05] LABS: UREA NITROGEN (BUN) 13 mg/dL (9-23)
[2018-02-11 17:06] LABS: AST (GOT) 12 IU/L (2-34)
[2018-02-11 17:07] LABS: ALT (GPT) 12 IU/L (3-49); LIPASE 31 U/L (1.0-51.0)
[2018-02-11 17:09] LABS: TROP-I INTERPRETATION NEGATIVE; TROPONIN-I 0.01 ng/mL (0.0-0.30)
[2018-02-11 20:36] LABS: APPEARANCE CLEAR ((CLEAR)); BILIRUBIN NEGATIVE; BLOOD NEGATIVE; COLOR YELLOW ((YELLOW)); GLUCOSE (STRIP) NEGATIVE; KETONES NEGATIVE; LEUKOCYTES NEGATIVE; NITRITE NEGATIVE; PROTEIN (STRIP) NEGATIVE; SPECIFIC GRAVITY 1.049 (1.000-1.030); UCUL ADDED? NO; UROBILINOGEN 0.2 MG/DL (0.2-1.0)
[2018-02-11] MEDS ORDERED: ULTRAM50 MG PO (21:21)
[2018-02-11 21:36] VITALS: BP 101/65
== END 2018-02-11 21:42 | disposition home or self-care (01) ==
LOC: EME 15:28
PROVIDERS: Emergency Medicine
DX: R10.32 Left lower quadrant pain (principal); R19.7 Diarrhea, unspecified; I71.4 Abdominal aortic aneurysm, without rupture; K40.20 Bilateral inguinal hernia, without obstruction or gangrene, not specified as recurrent; K57.30 Diverticulosis of large intestine without perforation or abscess without bleeding; I72.3 Aneurysm of iliac artery; K42.9 Umbilical hernia without obstruction or gangrene; N28.1 Cyst of kidney, acquired; I44.4 Left anterior fascicular block; I10 Essential (primary) hypertension; E11.9 Type 2 diabetes mellitus without complications; E78.5 Hyperlipidemia, unspecified; J44.9 Chronic obstructive pulmonary disease, unspecified; Z90.2 Acquired absence of lung [part of]; Z79.84 Long term (current) use of oral hypoglycemic drugs; Z79.01 Long term (current) use of anticoagulants; Z90.49 Acquired absence of other specified parts of digestive tract; Z87.891 Personal history of nicotine dependence
CPT/HCPCS: 74177; 80053; 81003; 83605; 83690; 84484; 85027; 93005; 99281; 99285; J2405; J3010; J7030

== ENCOUNTER 2018-03-16 14:54 | Emergency (ER) | payer OTHER ==
[~2018-03-16] VITALS: Ht 180.3 cm; Wt 90.2 kg
[2018-03-16 16:38] LABS: HEMATOCRIT 34.9 % (38.0-50.0); HEMOGLOBIN 12.2 G/DL (12.5-16.6); MCH 35.3 PG (29.0-34.0); MCV 100.9 FL (86-99); PLATELET COUNT 336 K/uL (156-360); RBC DIS.WIDTH-CV 12.2 % (11.8-14.6); RBC DIS.WIDTH-SD 45.1 % (39-53); RED BLOOD COUNT 3.46 M/uL (4.00-5.50); WHITE BLOOD COUNT 9.2 K/uL (4.1-10.2)
[2018-03-16 16:46] LABS: CHLORIDE 104 mEq/L (99-109); POTASSIUM 3.6 mEq/L (3.7-5.4); SODIUM 141 mEq/L (136-147)
[2018-03-16 16:49] LABS: GLUCOSE 108 mg/dL (70-99); TOTAL PROTEIN 6.5 g/dL (6.4-8.3)
[2018-03-16 16:51] LABS: TOTAL BILIRUBIN 0.5 mg/dL (0.0-1.0)
[2018-03-16 16:52] LABS: ALKALINE PHOSPHATASE 102 IU/L (3-129); GFR ESTIMATE (CALCULATED) > 59 mL/min/ (58.99-99999)
[2018-03-16 16:53] LABS: UREA NITROGEN (BUN) 17 mg/dL (9-23)
[2018-03-16 16:54] LABS: AST (GOT) 13 IU/L (2-34)
[2018-03-16 16:55] LABS: ALT (GPT) 14 IU/L (3-49)
[2018-03-16] MEDS ORDERED: FLEXERIL10 MG PO (18:12)
[2018-03-16] MEDS ORDERED: PREDNISONE20 MG PO (18:12)
[2018-03-16 18:21] VITALS: BP 113/79
== END 2018-03-16 18:28 | disposition home or self-care (01) ==
LOC: EME 14:54
PROVIDERS: Nurse Practitioner Family
DX: J44.1 Chronic obstructive pulmonary disease with (acute) exacerbation (principal); M94.0 Chondrocostal junction syndrome [Tietze]; Z87.891 Personal history of nicotine dependence; R05 Cough; Z90.2 Acquired absence of lung [part of]; Z85.118 Personal history of other malignant neoplasm of bronchus and lung; I70.0 Atherosclerosis of aorta; I10 Essential (primary) hypertension; E78.5 Hyperlipidemia, unspecified; E11.9 Type 2 diabetes mellitus without complications; Z79.84 Long term (current) use of oral hypoglycemic drugs; Z79.01 Long term (current) use of anticoagulants; Z88.0 Allergy status to penicillin
CPT/HCPCS: 71046; 80053; 85027; 93005; 94640; 99281; 99284; J1885; J3010; J7512

== ENCOUNTER 2018-04-11 09:22 | Emergency (ER) | payer OTHER ==
[~2018-04-11] VITALS: Ht 180.3 cm; Wt 94.0 kg
[~2018-04-11 09:22] MED LIST changes: +FLEXERIL10 MG PO; +PREDNISONE20 MG PO
[2018-04-11 11:31] LABS: BASOPHIL (%) 0.6 % (0-1); BASOPHIL COUNT 0.1 K/uL (0-0.1); EOSINOPHIL (%) 1.9 % (0-5); EOSINOPHIL COUNT 0.2 K/uL (0-0.3); HEMATOCRIT 40.2 % (38.0-50.0); HEMOGLOBIN 13.6 G/DL (12.5-16.6); IMMATURE GRANULOCYTE (%) 0.3 % (0.0-0.7); LYMPHOCYTE (%) 29.1 % (15-42); LYMPHOCYTE COUNT 2.9 K/uL (1.0-2.8); MCHC 33.8 G/DL (30.0-36.0); MCV 100.5 FL (86-99); MONOCYTE (%) 7.5 % (3-12); MONOCYTE COUNT 0.8 K/uL (0-0.8); NEUTROPHIL (%) 60.6 % (45-76); NEUTROPHIL COUNT 6.1 K/uL (1.8-6.4); PLATELET COUNT 308 K/uL (156-360); RBC DIS.WIDTH-CV 12.3 % (11.8-14.6); RBC DIS.WIDTH-SD 46.4 % (39-53); WHITE BLOOD COUNT 10.1 K/uL (4.1-10.2)
[2018-04-11 11:36] LABS: INTER. NORMALIZED RATIO 1.2
[2018-04-11 11:43] LABS: ALBUMIN 4.2 g/dL (3.2-4.8)
[2018-04-11 11:44] LABS: CHLORIDE 104 mEq/L (99-109); POTASSIUM 3.8 mEq/L (3.7-5.4); SODIUM 142 mEq/L (136-147)
[2018-04-11 11:46] LABS: GLUCOSE 75 mg/dL (70-99)
[2018-04-11 11:48] LABS: TOTAL BILIRUBIN 0.7 mg/dL (0.0-1.0)
[2018-04-11 11:49] LABS: ALKALINE PHOSPHATASE 107 IU/L (3-129)
[2018-04-11 11:50] LABS: CREATININE 1.2 mg/dL (0.6-1.3); GFR ESTIMATE (CALCULATED) > 59 mL/min/ (58.99-99999)
[2018-04-11 11:51] LABS: AST (GOT) 12 IU/L (2-34); UREA NITROGEN (BUN) 15 mg/dL (9-23)
[2018-04-11 11:53] LABS: ALT (GPT) 10 IU/L (3-49); LIPASE 63 U/L (1.0-51.0)
[2018-04-11 12:33] VITALS: BP 110/61
[2018-04-11] MEDS ORDERED: BENTYL20 MG PO (12:47)
[2018-04-12] MEDS ORDERED: CIPRO500 MG PO (04:25)
[2018-04-12] MEDS ORDERED: ZANTAC150 MG PO (04:25)
== END 2018-04-11 13:11 | disposition home or self-care (01) ==
LOC: EME 09:22
PROVIDERS: Emergency Medicine
DX: R10.84 Generalized abdominal pain (principal); R19.7 Diarrhea, unspecified; E11.9 Type 2 diabetes mellitus without complications; Z79.84 Long term (current) use of oral hypoglycemic drugs; E78.5 Hyperlipidemia, unspecified; Z86.711 Personal history of pulmonary embolism; Z79.01 Long term (current) use of anticoagulants; F32.9 Major depressive disorder, single episode, unspecified; Z90.49 Acquired absence of other specified parts of digestive tract; Z85.118 Personal history of other malignant neoplasm of bronchus and lung; Z87.891 Personal history of nicotine dependence; Z88.0 Allergy status to penicillin; Z88.5 Allergy status to narcotic agent
CPT/HCPCS: 74177; 80053; 83690; 85025; 85610; 87493; 99281; 99285; J3010; J7030

== ENCOUNTER 2018-04-12 01:02 | Emergency (ER) | payer OTHER ==
[~2018-04-12] VITALS: Ht 180.3 cm; Wt 89.5 kg
[~2018-04-12 01:02] MED LIST changes: +BENTYL20 MG PO
[2018-04-12 01:44] LABS: BASOPHIL (%) 0.6 % (0-1); BASOPHIL COUNT 0.1 K/uL (0-0.1); EOSINOPHIL (%) 2.8 % (0-5); EOSINOPHIL COUNT 0.3 K/uL (0-0.3); HEMATOCRIT 38.6 % (38.0-50.0); HEMOGLOBIN 13.1 G/DL (12.5-16.6); LYMPHOCYTE (%) 26.3 % (15-42); LYMPHOCYTE COUNT 2.7 K/uL (1.0-2.8); MCHC 33.9 G/DL (30.0-36.0); MCV 100.3 FL (86-99); MONOCYTE (%) 6.4 % (3-12); MONOCYTE COUNT 0.7 K/uL (0-0.8); NEUTROPHIL (%) 62.9 % (45-76); NEUTROPHIL COUNT 6.4 K/uL (1.8-6.4); RBC DIS.WIDTH-CV 12.4 % (11.8-14.6); RBC DIS.WIDTH-SD 45.7 % (39-53); RED BLOOD COUNT 3.85 M/uL (4.00-5.50); WHITE BLOOD COUNT 10.2 K/uL (4.1-10.2)
[2018-04-12 01:51] LABS: ALBUMIN 4.2 g/dL (3.2-4.8)
[2018-04-12 01:52] LABS: CHLORIDE 102 mEq/L (99-109); SODIUM 139 mEq/L (136-147)
[2018-04-12 01:54] LABS: GLUCOSE 105 mg/dL (70-99); TOTAL PROTEIN 7.2 g/dL (6.4-8.3)
[2018-04-12 01:56] LABS: TOTAL BILIRUBIN 0.7 mg/dL (0.0-1.0)
[2018-04-12 01:57] LABS: ALKALINE PHOSPHATASE 106 IU/L (3-129); CREATININE 1.1 mg/dL (0.6-1.3); GFR ESTIMATE (CALCULATED) > 59 mL/min/ (58.99-99999)
[2018-04-12 01:59] LABS: UREA NITROGEN (BUN) 13 mg/dL (9-23)
[2018-04-12 02:00] LABS: ALT (GPT) 14 IU/L (3-49); AST (GOT) 20 IU/L (2-34)
[2018-04-12 02:01] LABS: LIPASE 60 U/L (1.0-51.0); TROP-I INTERPRETATION NEGATIVE; TROPONIN-I 0.02 ng/mL (0.0-0.30)
[2018-04-12 02:49] LABS: ABS NEUTROPHIL COUNT 6.7; ANISOCYTOSIS NONE SEEN; EOSINOPHIL ABS CT 0; GIANT PLATELETS 1+; LYMPHOCYTES 24.3 % (15.0-45.0); MONOCYTES 9.6 % (0-9.0); PLAT.SUFFICIENCY ADEQUATE; PLATELET COUNT 312 K/uL (156-360); SEG.NEUTROPHILS 66.1 % (46.0-76.0)
[2018-04-12 04:02] LABS: APPEARANCE CLEAR ((CLEAR)); BILIRUBIN NEGATIVE; BLOOD NEGATIVE; COLOR YELLOW ((YELLOW)); GLUCOSE (STRIP) NEGATIVE; KETONES NEGATIVE; LEUKOCYTES MODERATE; NITRITE NEGATIVE; PROTEIN (STRIP) NEGATIVE; SPECIFIC GRAVITY 1.026 (1.000-1.030); UROBILINOGEN 0.2 MG/DL (0.2-1.0)
[2018-04-12 04:15] LABS: BACTERIA NONE SEEN /HPF; EPITHELIAL CELLS NONE SEEN /HPF; MUCUS TRACE /LPF; UCUL ADDED? YES; WHITE BLOOD CELLS 15-20 /HPF (0-5)
[2018-04-12] MEDS ORDERED: ZANTAC150 MG PO (04:25)
[2018-04-12] MEDS ORDERED: CIPRO500 MG PO (04:25)
[2018-04-12 05:25] VITALS: BP 103/74
== END 2018-04-12 05:26 | disposition home or self-care (01) ==
LOC: EME 01:02
PROVIDERS: Emergency Medicine
DX: N39.0 Urinary tract infection, site not specified (principal); I44.4 Left anterior fascicular block; J44.9 Chronic obstructive pulmonary disease, unspecified; I10 Essential (primary) hypertension; E78.5 Hyperlipidemia, unspecified; E11.9 Type 2 diabetes mellitus without complications; Z79.84 Long term (current) use of oral hypoglycemic drugs; Z85.118 Personal history of other malignant neoplasm of bronchus and lung; Z90.2 Acquired absence of lung [part of]; Z79.01 Long term (current) use of anticoagulants; Z88.0 Allergy status to penicillin; Z90.49 Acquired absence of other specified parts of digestive tract; Z87.891 Personal history of nicotine dependence
CPT/HCPCS: 80053; 81003; 83605; 83690; 84484; 85025; 87077; 87086; 87186; 93005; 99281; 99284; J1630; J3010; J7030